=== PATIENT | male | born 1995 | race Caucasian/White ===

== ENCOUNTER 2024-11-03 16:41 | Emergency (ER) | payer OTHER ==
[~2024-11-03] VITALS: Ht 188 cm; Wt 96.0 kg
[2024-11-03 16:55] VITALS: O2SAT 98
[2024-11-03] MEDS: FAMOTIDINE 20MG/2ML VIAL IV STA (18:32)
[2024-11-03] MEDS: SODIUM CHLORIDE 0.9% 1,000 ML IV ONE (18:32)
[2024-11-03] MEDS: ONDANSETRON HCL 4MG/2ML INJ IV STA (18:32)
[2024-11-03 18:47] LABS: HEMATOCRIT. 48.9 % (42.0-52.0); HEMOGLOBIN. 16.4 g/dL (14.0-18.0); MEAN CORPUSCULAR HGB CONC 33.6 g/dL (31.0-37.0); MEAN CORPUSCULAR VOLUME 92.4 fL (80.0-94.0); MEAN PLATELET VOLUME 9.1 fl (7.4-10.4); PLATELET 293 x1000/uL (130-400); RED CELL DISTRIBUTION WIDTH 12.7 % (11.6-14.6); WHITE BLOOD COUNT 16.3 x1000/uL (4.5-11.0)
[2024-11-03 18:53] LABS: CHLORIDE 107 mEq/L (98-107); POTASSIUM 4.4 mEq/L (3.5-5.1); SODIUM 140 mEq/L (136-145)
[2024-11-03 18:54] LABS: CALCIUM 10.6 mg/dL (8.7-10.4); CARBON DIOXIDE 21 mEq/L (21-32)
[2024-11-03 18:59] LABS: CREATININE 1.8 mg/dL (0.6-1.3); GLUCOSE 153 mg/dL (70-105)
[2024-11-03 19:00] LABS: DIFFERENTIAL COMMENT 1; UREA NITROGEN BLOOD 19 mg/dL (9-23)
[2024-11-03 19:01] LABS: ALANINE AMINOTRANSFERASE 26 IU/L (10-49); ALBUMIN 5.6 g/dL (3.2-4.8); ASPARTATE AMINOTRANSFERASE 27 IU/L (<34); BILIRUBIN DIRECT 0.4 mg/dL (<=3.0)
[2024-11-03 19:02] LABS: BILIRUBIN TOTAL 1.6 mg/dL (0.1-1.0); PROTEIN TOTAL 9.2 g/dL (6.0-8.3)
[2024-11-03 19:21] LABS: PLATELET ESTIMATE NORMAL
[2024-11-03] MEDS ORDERED: ONDA4TAB50 MT (19:32)
[2024-11-03 20:13] VITALS: BP 115/70; PULSE 124; RESP 16; TEMP 36.89184; O2SAT 100
== END 2024-11-03 20:18 | disposition home or self-care (01) ==
LOC: ER 16:41
DX: N17.9 Acute kidney failure, unspecified (principal); K52.9 Noninfective gastroenteritis and colitis, unspecified; E86.0 Dehydration
CPT/HCPCS: 80076; 80048; 83690; 83735; 85025; 36415; 93005; 96361; 96374; 96375; 99284; J3490; J2405; J7030; Z7610 ×3